=== PATIENT | male | born 1970 | race Caucasian/White ===

== ENCOUNTER 2018-02-24 03:26 | Inpatient (IN) | payer OTHER, MEDICAID ==
[~2018-02-24] VITALS: Ht 162.6 cm; Wt 75.4 kg
[2018-02-24 03:30] VITALS: Ht 162.6 cm; Wt 75.4 kg
[2018-02-24 04:10] LABS: PLATELET COUNT 253 x10^3mcL (130-400)
[2018-02-24 04:12] LABS: CALCIUM 8.5 mg/dL (8.5-10.1); CARBON DIOXIDE 30.7 mmol/L (21-32); CHLORIDE SERUM 100 mmol/L (98-107); CREATININE SERUM 0.9 mg/dL (0.7-1.3); GFR1 > 60 mL/min; GLUCOSE SERUM 151 mg/dL (74-106); POTASSIUM SERUM 3.4 mmol/L (3.5-5.1); SODIUM SERUM 134 mmol/L (136-145)
[2018-02-24 04:14] LABS: BASOPHIL % 0 % (0-2)
[2018-02-24 04:16] LABS: ALBUMIN 3.9 g/dL (3.4-5.0); ALKALINE PHOSPHATASE 95 U/L (46-116); ALT/SGPT 51 U/L (16-63); AMYLASE 77 U/L (25-115); AST/SGOT 24 U/L (15-37); BILIRUBIN TOTAL 0.94 mg/dL (0.20-1.00); LIPASE 145 IU/L (73-393); TOTAL PROTEIN, SERUM 8.1 g/dL (6.4-8.2)
[2018-02-24 06:41] VITALS: BP 130/74
[2018-02-24 07:39] LABS: FREE T4 1.09 ng/dL (0.76-1.46); FREE THYROXINE INDEX 3.2 ug/dL (1.4-4.5); T4(THYROXINE) 9.4 ug/dL (4.7-13.3)
[2018-02-24 08:21] LABS: T3 TOTAL 1.43 ng/mL
[2018-02-24 08:28] LABS: CHOLESTEROL/HDL RATIO 4.7; MAGNESIUM 2.3 mg/dL (1.8-2.4); PHOSPHOROUS 3.8 mg/dL (2.5-4.9)
[2018-02-24 09:19] VITALS: BP 120/71
[2018-02-24 13:38] LABS: AMPHETAMINE QUAL UR NONE DETECTED (See below)
[2018-02-24 14:03] LABS: microscopic required? YES; urine erythrocyte 2+ (NEGATIVE)
[2018-02-24 16:24] VITALS: BP 99/59
[2018-02-24 20:54] VITALS: BP 91/48
[2018-02-25 05:38] VITALS: BP 92/52
[2018-02-25 06:40] LABS: PLATELET COUNT 200 x10^3mcL (130-400); RED CELL DISTRIBUTION WIDTH 13.6 % (11.5-14.5)
[2018-02-25 07:17] LABS: CARBON DIOXIDE 27.4 mmol/L (21-32); CHLORIDE SERUM 101 mmol/L (98-107); CREATININE SERUM 1.2 mg/dL (0.7-1.3); GFR1 > 60 mL/min; GLUCOSE SERUM 119 mg/dL (74-106); MAGNESIUM 2.2 mg/dL (1.8-2.4); POTASSIUM SERUM 4.2 mmol/L (3.5-5.1); SODIUM SERUM 135 mmol/L (136-145)
[2018-02-25 09:52] VITALS: BP 114/58
[2018-02-25 09:55] LABS: BAND NEUTROPHIL 17 % (0-10); BASOPHIL 0 % (0-2); MONOCYTE 4 % (0-7); SEGMENTED NEUTROPHILS 67 % (37-75)
[2018-02-25 09:56] LABS: PLATELET MORPHOLOGY LARGE PLATELET SEEN; rbc morphology (normal/abnorm) NORMAL (NORMAL)
[2018-02-25 13:05] VITALS: BP 114/58
[2018-02-25] MEDS ORDERED: LEVOFLOXACIN500 M1 PO (16:20)
[2018-02-25] MEDS ORDERED: FLA500 PO (16:21)
[2018-02-25] MEDS ORDERED: MOT800 PO (16:22)
== END 2018-02-25 18:03 | disposition home or self-care (01) | DRG 342 ==
LOC: ED 03:26 → MU 05:45
PROVIDERS: Emergency Medicine; Family Medicine; Surgery
PROC: 0DTJ4ZZ Resection of Appendix, Percutaneous Endoscopic Approach (ICD-10-PCS; principal; 2018-02-24 11:30)
DX: K35.80 Unspecified acute appendicitis (principal); E87.1 Hypo-osmolality and hyponatremia; E87.6 Hypokalemia; Z68.30 Body mass index [BMI] 30.0-30.9, adult; F17.210 Nicotine dependence, cigarettes, uncomplicated
CPT/HCPCS: 83880; 84439; 94150; J0330; J1170; J1885; J2250; J2405; J2543; J2704; J2710; J3010; J3490; J7030; J7120; Q0092